=== PATIENT | female | born 1995 | race Caucasian/White ===

== ENCOUNTER 2019-11-20 23:59 | Emergency (ER) | payer SELFPAY ==
[~2019-11-20] VITALS: Ht 165.1 cm; Wt 58.1 kg
[2019-11-21 00:05] VITALS: BP_SYST 118
[2019-11-21] MEDS ORDERED: DIAZEPAM 5 MG TABLET (VALIUM) PO ONE (02:00)
[2019-11-21] MEDS ORDERED: IBUPROFEN 600 MG TABLET PO ONE (02:00)
[2019-11-21 02:08] VITALS: BP_SYST 125
== END 2019-11-21 02:08 | disposition home or self-care (01) ==
LOC: SED 23:59
DX: M79.604 Pain in right leg (principal); M79.605 Pain in left leg
CPT/HCPCS: 99283